=== PATIENT | female | born 1950 | race Caucasian/White ===

== ENCOUNTER 2023-06-29 05:35 | Day surgery (SDC) | payer MEDICARE, BC ==
[2023-06-21 11:39] LABS: BASOPHILS # (AUTO) 0.1 X10'3 (0-0.2); BASOPHILS % (AUTO) 0.7 % (0-1); EOSINOPHILS # (AUTO) 0.1 X10'3 (0-0.9); EOSINOPHILS % (AUTO) 1.2 % (0-6); LYMPHOCYTES # (AUTO) 1.8 X10'3 (1.1-4.8); LYMPHOCYTES % (AUTO) 15.4 % (21-51); MEAN CORPUSCULAR HEMOGLOBIN 28.2 PG (27.0-31.0); MEAN CORPUSCULAR HGB CONC 33.1 g/dL (33.0-36.5); MEAN CORPUSCULAR VOLUME 85.1 FL (78-98); MEAN PLATELET VOLUME 7.3 FL (7.4-10.4); MONOCYTES # (AUTO) 1.1 X10'3 (0-0.9); MONOCYTES % (AUTO) 9.2 % (2-12); NEUTROPHILS # (AUTO) 8.4 X10'3 (1.8-7.7); NEUTROPHILS % (AUTO) 73.5 % (42-75); PRE OP HEMATOCRIT 44.3 % (35.0-45.0); PRE OP HEMOGLOBIN 14.6 g/dL (12.0-16.0); PRE OP PLATELET COUNT 315 X10'3 (140-440); PRE OP WHITE BLOOD COUNT 11.4 10'3 (4.8-10.8); RED CELL DISTRIBUTION WIDTH 14.6 % (11.5-14.5)
[2023-06-21 11:40] LABS: BILIRUBIN,URINE NEGATIVE (Neg); CLARITY,URINE SLIGHTLY CLOUDY (Clear); COLOR,URINE YELLOW (Yellow); GLUCOSE, URINE NEGATIVE (Neg); KETONES,URINE NEGATIVE (Neg); LEUKOCYTE ESTERASE ,URINE SMALL (Neg); NITRITES, URINE NEGATIVE (Neg); OCCULT BLOOD,URINE NEGATIVE (Neg); PH,URINE 6.5 (4.8-8.0); PROTEIN,URINE NEGATIVE (Neg); UROBILINOGEN,URINE 0.2 E.U/dL (0.2-1.0)
[2023-06-21 11:45] LABS: UA COLLECTION TYPE CLN CATCH MIDSTREAM
[2023-06-21 11:49] LABS: BACTERIA,URINE FEW /HPF (Neg); RBC,URINE 0-2 /HPF (0-2); SQUAMOUS EPITHELIAL CELL,UR MODERATE /LPF (FEW)
[2023-06-21 11:57] LABS: ALBUMIN 3.9 G/DL (3.4-5.0); ALKALINE PHOSPHATASE 108 IU/L (46-116); BLOOD UREA NITROGEN 19 MG/DL (7-18); CALCIUM 9.4 MG/DL (8.5-10.1); CHLORIDE 100 MMOL/L (99-107); CREATININE 0.76 MG/DL (0.40-0.90); PRE OP ALT 22 U/L (30-65); PRE OP ANION GAP 11 (8-16); PRE OP AST 26 U/L (10-37); PRE OP BILIRUB, TOTAL 0.4 MG/DL (0.0-1.0); PRE OP GLUCOSE 132 MG/DL (70-104); PRE OP SODIUM 138 MMOL/L (135-145); TOTAL CARBON DIOXIDE 27.5 MMOL/L (24-32); TOTAL PROTEIN 7.8 G/DL (6.4-8.2); eGFR 75 ML/MIN
[~2023-06-29] VITALS: Ht 162.6 cm; Wt 76.2 kg
[~2023-06-29 05:35] MED LIST: ALBU6.7H14 INH; ASPI81TA52 PO; CALCIUM; CYCL-394 PO; LISI5TAB22 PO; MAGNESIUM; METF-1203 PO; PANT40TA54 PO; SIMV-42 PO; VITAMIN D; ZINC; clindamycin-Cleocin 900mg/D5W 50 ML IV ONE; famotidine 20mg tablet PO ONE; ringers solution, lacted 1,000 ML IV SCH; scopolamine 1MG/72H patch 1 PATCH PATCH.TD.3 TD ONE
[2023-06-29] MEDS ORDERED: sevoflurane 250ml liquid IH ONE (07:26)
[2023-06-29] MEDS ORDERED: midazolam 1 mg/ML 2ml injection ONE (07:30)
[2023-06-29] MEDS ORDERED: fentaNYL/PF 50MCG/1 ML 2ML syringe ONE (07:30)
[2023-06-29] MEDS ORDERED: propofol inj 20 ML IV ONE (07:32)
[2023-06-29] MEDS ORDERED: morphine 4 MG/ML inj SYRINge IV PRN (07:55)
[2023-06-29] MEDS ORDERED: ondansetron/PF 4mg/2ml inj IV PRN (07:55)
[2023-06-29] MEDS ORDERED: proCHLORperazine 10 MG/2 ml inj IV PRN (07:55)
[2023-06-29] MEDS ORDERED: morphine 2 MG/ML inj. syringe IV PRN (07:55)
[2023-06-29] MEDS ORDERED: ondansetron/PF 4mg/2ml inj ONE (07:55)
[2023-06-29] MEDS ORDERED: dexamethasone sod phosphate 4mg/ml inj. ONE (07:55)
[2023-06-29] MEDS ORDERED: ringers solution, lacted 1,000 ML IV SCH (07:55)
[2023-06-29] MEDS ORDERED: meperidine/PF 25mg/ml syringe IV PRN ×3 (07:55)
[2023-06-29] MEDS ORDERED: acetaminophen 1,000mg/100ml IV 100 ML IV ONE (07:57)
[2023-06-29 08:13] VITALS: BP 123/56; PULSE 78; RESP 16; O2SAT 99
--- NOTE | 2023-06-29 08:13 | NUR ---
Received from OR via [facility], accompanied by Anesthesiologist and report given by Anesthesiologist, DR. RAMOS. PATIENT WAKING UP, NO S/S OF PAIN, V/S WNL, SCD ON, 20G TO L.FA, FABRIZIO PAD WITH SCANT SANGEOUNS DRAINAGE W/ NO S/S OF COMPLICATIONS
[2023-06-29 08:23] VITALS: BP 113/45; PULSE 64; RESP 15; O2SAT 95
[2023-06-29 08:33] VITALS: BP 126/56; PULSE 76; RESP 13; O2SAT 96
--- NOTE | 2023-06-29 09:13 | NUR ---
ALL DISCHARGE CRITERIA HAS BEEN MET. VSS, PAIN AT TOLERABLE LEVEL. ABLE TO SAFELY AMBULATE AND TRANSFER SELF. IV TAKEN OUT WITHOUT ANY COMPLICATIONS. ALL DISCHARGE INSTRUCTIONS COVERED WITH PATIENT AND ALL QUESTIONS ANSWERED. PATIENT TAKEN OUT VIA WHEELCHAIR TO PERSONAL VEHICLE WHERE DAUGHTER, MIKE, DROVE PATIENT HOME.
[2023-06-29 11:05] VITALS: BP 159/61; PULSE 81; RESP 16; TEMP 97.6; O2SAT 96
[2023-06-29 11:09] VITALS: O2SAT 96
== END 2023-06-29 09:13 | disposition home or self-care (01) ==
LOC: PRE-OP 05:35
PROVIDERS: ATTEND Obstetrics & Gynecology Obstetrics
DX: N95.0 Postmenopausal bleeding (principal); N84.0 Polyp of corpus uteri; I10 Essential (primary) hypertension; J44.9 Chronic obstructive pulmonary disease, unspecified; E78.5 Hyperlipidemia, unspecified; K21.9 Gastro-esophageal reflux disease without esophagitis; E11.42 Type 2 diabetes mellitus with diabetic polyneuropathy; M19.90 Unspecified osteoarthritis, unspecified site; Z98.890 Other specified postprocedural states; Z79.899 Other long term (current) drug therapy; Z79.84 Long term (current) use of oral hypoglycemic drugs; Z79.82 Long term (current) use of aspirin; Z85.9 Personal history of malignant neoplasm, unspecified
CPT/HCPCS: 36415; 58558; 71046; 80053; 81001; 85025; 86885; 86900; 86901; 87088; J0131; J1100; J2250; J2405; J2704; J3010; J3490; J7030; J7120; Z7506; Z7512; 82948; A4355; A4618; A6258; A7000